=== PATIENT | male | born 1935 | race Caucasian/White ===

== ENCOUNTER → 2016-06-04 | Outpatient (CLI) | payer OTHER ==
--- NOTE | 2016-06-04 17:04 | DX ---
Chest, Two Views 1219 hours History: J 41, bronchitis, cough. Comparison: February 2012 Findings: Cardiac silhouette is within normal range. No pneumonia, congestive heart failure, pleura l effusion, or pneumothorax. Bilateral peribronchial thickening. Impression: 1. Mild bronchitis. 2. No definite focal pneumonia.
== END ==
LOC: BRMIMAGING 12:04
PROVIDERS: ATTEND Registered Nurse
DX: J40 Bronchitis, not specified as acute or chronic (principal)
CPT/HCPCS: 71020-PO